=== PATIENT | male | born 1960 | race Caucasian/White ===

== ENCOUNTER 2021-08-19 17:18 | Emergency (ER) | payer OTHER, SELFPAY ==
[2021-08-19 17:19] VITALS: BP 189/99; PULSE 75; RESP 14; TEMP 36.2; O2SAT 98; BMI 41.1
--- NOTE | 2021-08-19 18:14 | EKG12_ITS ---
Test Reason : CP Blood Pressure : / mmHG Vent. Rate : 069 BPM Atrial Rate : 069 BPM P-R Int : 212 ms QRS Dur : 080 ms QT Int : 382 ms P-R-T Axes : 025 077 037 degrees QTc Int : 409 ms Sinus rhythm with 1st degree A-V block Otherwise normal ECG Confirmed by KIMMIE PRINCE, SHONNA ([id number]), editor index IZZY MIRAMONTES ([id number]) on 08/23/2021 10:53:48 AM Referred By: TL Confirmed By:SHONNA BURKS MD
--- NOTE | 2021-08-19 18:20 | CT_ITS ---
INDICATION: trauma EXAMINATION: CT Chest Abdomen And Pelvis W/ Contrast Injection TECHNIQUE: Images were obtained of the chest, abdomen and pelvis following IV contrast. A radiation dose optimization technique was used for this scan. IV Contrast dosage and agent: IV 100mL Isovue-370 COMPARISON: None. FINDINGS: Lungs: Unremarkable Mediastinum: The cardiomediastinal silhouette is not enlarged. No mediastinal, hilar or axillary adenopathy. Mild aortic arch and coronary artery calcifications. No obvious filling defect seen within the visualized pulmonary arteries. Pleura: Unremarkable Liver: Unremarkable Gallbladder: Unremarkable Spleen: Unremarkable Pancreas: Unremarkable Adrenal Glands: Unremarkable Kidneys: Scattered too small to characterize subcentimeter hypodensities bilaterally. Vasculature: Moderate aortoiliac atherosclerotic disease. GI Tract: Unremarkable Lymphadenopathy: None Peritoneum: No ascites. Bladder: Unremarkable Reproductive organs: There are prostatic calcifications. Bones/Soft tissues: No suspicious osseous or soft tissue lesions CT/CT Chest, Abd, Pel w/Contrast IMPRESSION: No acute abnormalities in the chest, abdomen or pelvis. Electronically Signed: Roger Potter MD at 19:58 EST ,
[2021-08-19 18:28] VITALS: PULSE 92; RESP 19; O2SAT 97; O2SAT 98
[2021-08-19] MEDS: Aspirin 81 MG TAB.CHEW 324 MG PO (18:34)
[2021-08-19 18:50] LABS: Anion Gap 9 (5-15); BUN 20 mg/dL (7-18); BUN/Creat Ratio 22.4 RATIO (10-20); Calcium,Total 8.6 mg/dL (8.5-10.1); Chloride 105 mmol/L (98-107); Creatinine, Serum 0.89 mg/dL (0.70-1.30); EST Glomerular Filtration Rate 91 mL/min (>60); Est Glom Filt Rate - Afr Amer 110 mL/min (>60); Estimated Creatinine Clearance 87.72 ml/min; Glucose 233 mg/dL (74-106); Sodium Level 136 mmol/L (136-145); Troponin-I HS 5 pg/mL (3.0-78.0)
[2021-08-19 18:52] LABS: Absolute Lymphocyte Count 1.82 X10^3/uL (0.83-4.51); Absolute Neutrophil Count 2.6 X10^3/uL (2.0-7.7); Basophil# 0.07 X10^3/uL; Basophil% 1.3 % (0-1); Eosinophil# 0.12 X10^3/uL; Eosinophils% 2.3 % (0-5); Hematocrit 40.3 % (40-54); Hemoglobin 13.4 g/dL (13.0-16.5); Lymphocyte # 1.82 X10^3/ul (0.83-4.51); Mean Corp Hgb Conc 33.3 g/dL (32-36); Mean Corpuscular Hgb 30.7 pg (27.0-32.0); Mean Corpuscular Volume 92.4 fL (80-94); Mean Platelet Vol. 9.7 fl (6.2-12.0); Monocyte# 0.52 X10^3/uL; NRBC Flagged by Analyzer 0 % (0-5); Neutrophil # 2.64 X10^3/uL (2.7-7.7); Neutrophil % 50.8 % (47-70); Platelet Count 223 K/mm3 (150-450); RBC Distribution Width CV 12.9 % (11.6-14.6); RBC Distribution Width SD 43.8 fl (35.1-43.9); Red Blood Count 4.36 M/mm3 (4.6-6.2); White Blood Count 5.2 K/mm3 (4.4-11.0)
[2021-08-19] MEDS: Morphine 4 MG/ML Syringe IV (19:17)
[2021-08-19] MEDS: Ondansetron 4 MG/2 ML Vial IV (19:17)
[2021-08-19 19:18] VITALS: BP 143/74; PULSE 68; RESP 17; O2SAT 98
[2021-08-19 20:47] LABS: Troponin-I HS 8 pg/mL (3.0-78.0)
--- NOTE | 2021-08-19 20:53 | ED.VIS.CHEST ---
HPI History of Present Illness Chief Complaint: Chest Pain Narrative Narrative: 61-year-old male presenting with right-sided rib pain in the right axilla and the central portion of the right side of the chest and down into his abdomen. He states he was jacking up his house and he had been doing this slowly over time. He went up today to check it up a little bit more and a 2 x 4 came loose and hit him in the abdomen and across his chest. He states that it knocked him for a loop, but he did not get knocked out. He states he vomited once. He is no longer nauseous. He is complaining of pain in his chest and abdomen. Patient complains of abrasions to the abdomen and the chest wall. Patient denies any blood in his urine. No diarrhea or blood in stool. He states he did not hit his head or lose consciousness. PFSH PFSH Home Medications gabapentin 08/19/21 [History Last Taken Unknown] hydrocodone-acetaminophen 1 tab PO Q6H PRN 3 Days #10 tab 08/19/21 [Rx Last Taken Unknown] insulin aspart U-100 [Novolog Flexpen U-100 Insulin] SUBCUT 08/19/21 [History Last Taken Unknown] insulin detemir U-100 [Levemir FlexTouch U-100 Insuln] unit SUBCUT 08/19/21 [History Last Taken Unknown] lidocaine [Lidoderm] 1 patch TOPICAL DAILY PRN #1 ea 08/19/21 [Rx Last Taken Unknown] lisinopril 08/19/21 [History Last Taken Unknown] sitagliptin [Januvia] mg 08/19/21 [History Last Taken Unknown] Allergy/AdvReac Type Severity Reaction Status Date / Time No Known Allergies Allergy Verified 08/19/21 17:21 Social History Smoking Status: Former smoker ROS ROS ED Constitutional Constitutional ED: Denies chills or fever(s) Eyes Eyes: Denies blurry vision or change in vision ENT ENT ED: Denies rhinorrhea or sore throat Cardiovascular Cardiovascular: Reports as per HPI Respiratory/Chest Respiratory/Chest: Denies cough or dyspnea Gastrointestinal Gastrointestinal: Reports abdominal pain, nausea and vomiting; Denies constipation, diarrhea or melena Genitourinary Genitourinary ED: Denies dysuria or hematuria Musculoskeletal Musculoskeletal: Denies back pain, myalgias or neck pain Integumentary Reports Abrasions; Denies rash Neurologic Neurologic: Denies headache(s) or paresthesias EXAM Physical Exam Const Vital Signs: 08/19/21 17:19 08/19/21 17:42 08/19/21 18:28 Temperature 97.1 F L Temperature Source Temporal Pulse Rate 75 92 Respiratory Rate 14 19 H Respiratory Effort Normal Blood Pressure 189/99 H Blood Pressure Mean 129 Pulse Ox 98 97 Oxygen Delivery Method Room Air Room Air 08/19/21 19:18 Temperature Temperature Source Pulse Rate 68 Respiratory Rate 17 Respiratory Effort Blood Pressure 143/74 H Blood Pressure Mean 97 Pulse Ox 98 Oxygen Delivery Method Room Air Positive well nourished General Appearance ED: NAD; Negative for pallor HEENT Reports moist mucous membranes normocephalic and atraumatic Eyes PERRL and EOMs intact bilaterally Chest Wall Chest Narrative: Tenderness to palpation over the right side of the upper chest and sternum. Equal symmetric breath sounds and chest wall rise. Resp normal respiratory effort Effort and Inspection: respiratory distress Cardio regular rate and regular rhythm GI GI Narrative: Tenderness over the epigastric region and mid abdomen. There are superficial abrasions vertically over the mid abdomen. Abdomen is nonperitoneal. Extremity normal to inspection Neuro oriented x3 Sensorium / Orientation: awake and alert Psych mental status grossly normal Skin General Skin Exam: Negative for jaundice or pallor Heart Score History: Slightly/Non-Suspicious ECG: Normal Age: >45 - <65 years Risk Factors: 1 or 2 Risk Factors Troponin: </= Normal Limit Score: 2 MDM MDM MDM Narrative Medical decision making narrative: Patient presenting with traumatic abdominal and rib pain. Patient given morphine and Zofran on arrival. EKG is obtained and shows a normal sinus rhythm with ventricular rate of 69 bpm without sign of ischemic change on my interpretation. First-degree AV block is noted. CBC and BMP are within normal limits. High-sensitivity troponin is 5 initially in the 2-hour troponin is 8. I do believe this rules out ACS. Given that the patient has pain secondary to trauma I have low suspicion for PE. CT of the chest abdomen pelvis is obtained and is negative for acute findings. Patient requesting more pain is given oxycodone in the ER. He will be given a Lidoderm patch as well. He is given Lidoderm patches and [place] for home. He is given return precautions and counseled that likely he will take several days for his pain to improve. He was counseled not to wrap his ribs. Impression: 1. Chest pain noncardiac 2. Blunt abdominal trauma 3. Nausea/vomiting resolved Lab Data Attestation: I reviewed the patient's lab results. Labs: Laboratory Results - last 24 hr 08/19/21 08/19/21 08/19/21 17:50 17:50 20:08 WBC 5.2 RBC 4.36 L Hgb 13.4 Hct 40.3 MCV 92.4 MCH 30.7 MCHC 33.3 RDW Std Deviation 43.8 RDW Coeff of Geovanna 12.9 Plt Count 223 MPV 9.7 Immature Gran % (Auto) 0.600 Neut % (Auto) 50.8 Lymph % (Auto) 35.0 [place] % (Auto) 10.0 Eos % (Auto) 2.3 Baso % (Auto) 1.3 H Absolute Neuts (auto) 2.6 Absolute Lymphs (auto) 1.82 Nucleated RBC % 0 Sodium 136 Potassium 4.0 Chloride 105 Carbon Dioxide 22.0 Anion Gap 9 BUN 20 H Creatinine 0.89 Estim Creat Clear Calc 87.72 Est GFR (MDRD) Af Amer 110 Est GFR (MDRD) Non-Af 91 BUN/Creatinine Ratio 22.4 H Glucose 233 H Calcium 8.6 Troponin I High Sens 5 8 Radiography Diagnostic Testing: Clinical Impression(s) from Imaging Studies Chest/Abdomen/Pelvis CT 08/19/21 18:20 IMPRESSION: No acute abnormalities in the chest, abdomen or pelvis. Electronically Signed: Roger Potter MD at 19:58 EST , Discharge Plan Triage Chief Complaint: Chest Pain ED Provider: Nathan Jeffries Dx/Rx/DC Orders Instructions: ED Abd Injury Blunt Benign, ED Contusion, Rib Prescriptions: New hydrocodone-acetaminophen 5-325 mg tablet 1 tab PO Q6H PRN (Reason: pain) 3 Days Qty: 10 RF: 0 lidocaine [Lidoderm] 5 % adhesive patch,medicated 1 patch topical DAILY PRN (Reason: pain) Qty: 1 RF: 0 No Action gabapentin 400 mg capsule RF: 0 insulin aspart U-100 [Novolog Flexpen U-100 Insulin] 100 unit/mL (3 mL) insulin pen SUBCUT RF: 0 Levemir FlexTouch U-100 Insuln 100 unit/mL (3 mL) insulin pen SUBCUT RF: 0 Januvia 100 mg tablet RF: 0 lisinopril 20 mg tablet RF: 0 Primary Care Provider: Andry Almaguer NP Referrals: Andry Almaguer NP, [employer] [Primary Care Provider] - Disposition Disposition: Home, Self Care
[2021-08-19 21:03] VITALS: BP 132/80; PULSE 74; RESP 17; O2SAT 98
== END 2021-08-19 21:04 | disposition home or self-care (01) ==
PROVIDERS: Emergency Provider Student in an Organized Health Care Education/Training Program; PCP Nurse Practitioner Family; Visit Provider Student in an Organized Health Care Education/Training Program
DX: S39.91XA Unspecified injury of abdomen, initial encounter (principal); R07.89 Other chest pain; Z87.891 Personal history of nicotine dependence; X58.XXXA Exposure to other specified factors, initial encounter
CPT/HCPCS: 71260; 74177; 80048; 84484; 85025; 93005; 96374; 96375; 99283; Q9967; A4216; J2405

== ENCOUNTER 2023-04-28 23:07 | Emergency (ER) | payer MEDICARE, SELFPAY ==
[2023-04-28 23:12] VITALS: BP 153/92; PULSE 67; RESP 18; TEMP 36.6; O2SAT 99; BMI 41.2
[2023-04-28 23:14] VITALS: BP 153/92; PULSE 65; RESP 18; TEMP 36.6; O2SAT 99
--- NOTE | 2023-04-28 23:35 | EX.ED.UPPERE ---
HPI History of Present Illness HPI Narrative: Red and swollen right hand that began 1 to 2 hours ago. Denies any injury or trauma. Initially started as itching earlier today. It is a little uncomfortable. No fever. No history of cellulitis. No recent insect bite or allergic reactions to anything. No fall or injury. Chief Complaint: Edema Informant: patient Occured/Mechanism Mechanism/Context: No injury and No blunt trauma Onset/Context/Timing Onset: Today and Hours Context: Gradual Onset Timing: Continuous Quality of Pain: Dull Current Severity: Mild Maximum Severity: Mild Associated Symptoms Associated Symptoms: Negative for Parasthesia, Weakness or Loss of Funtion Narrative Narrative: 63-year-old diabetic male with atraumatic redness and swelling of his hand moving in his forearm that started several hours ago. Initially was itching. No history of any trauma. No history of any insect bite or sting or any other contact with any allergic reaction. Prior similar symptoms: No Recent Illness/Hospitalization: [facility] Medical History Diabetic acetonemia Home Medications gabapentin 400 mg capsule 400 mg PO Q6H 08/19/21 [History Last Taken Unknown] lisinopril 20 mg tablet 20 mg PO DAILY 08/19/21 [History Last Taken Unknown] aspirin 325 mg tablet 325 mg PO DAILY 04/28/23 [History Last Taken Unknown] atorvastatin 20 mg tablet 20 mg PO DAILY 04/28/23 [History Last Taken Unknown] cephalexin 500 mg capsule 500 mg PO Q6 #40 CAPSULES 04/28/23 [Rx Last Taken Unknown] dapagliflozin propanediol 10 mg tablet (Farxiga) 10 mg PO DAILY 04/28/23 [History Last Taken Unknown] insulin glargine 100 unit/mL (3 mL) subcutaneous pen (Lantus Solostar U-100 Insulin) 60 unit subcut QHS 04/28/23 [History Last Taken Unknown] insulin lispro 100 unit/mL subcutaneous pen (Humalog KwikPen (U-100) Insulin) 12 - 18 unit subcut BID 04/28/23 [History Last Taken Unknown] omega 2-flc-gdn-fish oil 1,200 mg (144 mg-216 mg) capsule (Fish Oil) 1 cap PO DAILY 04/28/23 [History Last Taken Unknown] venlafaxine 75 mg capsule,extended release 24 hr 75 mg PO DAILY 04/28/23 [History Last Taken Unknown] Allergy/AdvReac Type Severity Reaction Status Date / Time No Known Allergies Allergy Verified 04/28/23 23:08 Social History Smoking Status: Former smoker ROS ROS ED ROS Narrative Hand red and swollen. Itching. Review of Systems ROS Unobtainable: Denies due to encephalopathy Constitutional Constitutional ED: Denies chills or fever(s) Eyes Eyes: Denies blurry vision ENT ENT ED: Denies ear pain Cardiovascular Cardiovascular: Denies chest pain Respiratory/Chest Respiratory/Chest: Denies cough or dyspnea Gastrointestinal Gastrointestinal: Denies abdominal pain Genitourinary Genitourinary ED: Denies dysuria or hematuria Musculoskeletal Musculoskeletal: Denies back pain Integumentary Denies abscess Neurologic Neurologic: Denies headache(s) Psychiatric Psychiatric: Denies anxiety or depression Endocrine Endocrinology: Denies cold intolerance Hematologic/Lymphatic Hematologic/Lymphatic: Denies easy bleeding or easy bruising Allergic/Immunologic Allergic/Immunologic ED: Denies mouth swelling or tongue swelling EXAM Physical Exam Narrative Exam Narrative: 63-year-old male vital signs stable afebrile. Does not look septic or toxic. No distress. H EENT exam unremarkable. Lungs clear. Heart regular rhythm. Abdomen soft nontender. Moving all 4 extremities. Calves are nontender without edema. Dorsum of his right hand is swollen. Mildly red. Also extends into the palmar aspect of his distal third of his forearm. Normal radial pulse. Normal flexion extension of the hand. This could either be an allergic reaction or early cellulitis. There is no axillary lymphadenopathy. Joints are unremarkable. Otherwise exam is unremarkable. Const Vital Signs: 04/28/23 23:12 04/28/23 23:14 Temperature 97.8 F 97.8 F Temperature Source Temporal Temporal Pulse Rate 67 65 Respiratory Rate 18 18 Blood Pressure 153/92 H 153/92 H Blood Pressure Mean 112 112 Pulse Ox 99 99 Positive well nourished and well developed; Negative for cachectic, contractures or unkempt General Appearance ED: well developed and NAD; Negative for unkempt, cachectic, contractures, cyanotic or diaphoretic Nutritional Appearance: Negative for cachectic HEENT Reports moist mucous membranes normocephalic; Negative for atraumatic, trauma or tenderness Eyes PERRL and EOMs intact bilaterally General Eye ED: Negative for other Neck full ROM and supple General: Negative for tenderness Lymph Lymphatic: Negative for other Chest Wall inspection of chest normal and palpation of chest normal Chest: Negative for other Resp normal respiratory effort and clear to auscultation bilaterally Effort and Inspection: Negative for pain with movement Auscultation: Negative for rales, rhonchi or wheezes Cardio regular rate, regular rhythm, S1 normal heart sound, S2 normal heart sound and no murmurs Rate: Negative for bradycardia Rhythm: Negative for abnormal rhythm GI non-tender, non-distended and no masses Inspection: Negative for abdominal distention Auscultation: normoactive bowel sounds Palpation: soft; Negative for tender or guarding Back/Spine no CVA tenderness General Back: Negative for CVA tenderness Cervical Spine: Negative for cervical spine tenderness Thoracic Spine / Upper Back: Negative for thoracic spinal tenderness Lumbar Spine / Lower Back: Negative for lumbar spinal tenderness Extremity full ROM; Negative for normal to inspection Extremity Narrative: Right hand red mildly swollen. Dorsum and palmar aspect of the distal third of the right forearm. No axillary lymphadenopathy. Normal range of motion. Normal radial pulse. Full flexion extension. No necrotic skin. No crepitance or subcu air. General Extremety ED: Yes edema General Extremity: edema Neuro oriented x3, CN's II-XII intact bilaterally, moves all extremities and no focal motor deficits Sensorium / Orientation: alert, oriented to person, oriented to place and oriented to time; Negative for orientation impaired, lethargic or stuporous Motor Exam: strength 5/5 throughout Psych mental status grossly normal Appearance: Negative for unkempt Attitude: No agitated Mood & Affect: Negative for depressed, anxious or tearful Skin Skin Narrative: Cellulitis or allergic reaction of the right hand and distal third of the forearm. General Skin Exam: Negative for petechiae Lesions: no lesions Rashes: No no rashes Trauma: Negative for no lacerations or abrasions, abrasion or laceration MDM MDM MDM Narrative Medical decision making narrative: 63-year-old diabetic male with either acute allergic reaction of his right hand and distal forearm or an early cellulitis. Due to him being diabetic and to treat this is his infection. We placed on Keflex 500 4 times daily for 10 days. Started on it tonight here given his first dose. Also iced and elevated for possible allergic reaction. Motrin for pain and swelling. He is already taken Benadryl and will continue to do so for possible allergic reaction. I do not want to put him on prednisone 1 due to his diabetes and elevated blood sugars and 2 cases of infection. History & Record Review Discussion w/independent historian: Patient Additional record(s) reviewed:: Prior inpatient record, Prior outpatient record, Prior ED visit and Prior labs Discharge Plan Triage Chief Complaint: Edema ED Provider: Eran Rain Dx/Rx/DC Orders Clinical Impression: History of diabetes mellitus, Cellulitis of hand, right Instructions: ED Cellulitis Prescriptions: New cephalexin 500 mg capsule 500 mg PO Q6 Qty: 40 0RF No Action gabapentin 400 mg capsule 400 mg PO Q6H lisinopril 20 mg tablet 20 mg PO DAILY atorvastatin 20 mg tablet 20 mg PO DAILY Patient Comments: TAKE 1 TABLET BY MOUTH EVERY DAY FOR 90 DAYS insulin lispro [Humalog KwikPen Insulin] 100 unit/mL insulin pen 12 - 18 unit SUBCUT BID Patient Comments: INJECT BEFORE MEALS 10 UNITS IN AM 15 UNITS AT LUNCH 15 UNITS AT EVENING MEAL insulin glargine [Lantus Solostar U-100 Insulin] 100 unit/mL (3 mL) insulin pen 60 unit SUBCUT QHS Patient Comments: INJECT 60 UNITS SUBCUTANEOUSLY DAILY AT BEDTIME FOR 90 DAYS Farxiga 10 mg tablet 10 mg PO DAILY Patient Comments: TAKE 1 TABLET BY MOUTH EVERY DAY venlafaxine 75 mg capsule,extended release 24hr 75 mg PO DAILY Patient Comments: TAKE 1 CAPSULE BY MOUTH EVERY DAY FOR 90 DAYS aspirin 325 mg tablet 325 mg PO DAILY omega 3-jyl-knt-fish oil [Fish Oil] 1,200 (144-216) mg capsule 1 cap PO DAILY Primary Care Provider: Andry Almaguer NP Referrals: Andry Almaguer [employer]ER, [employer]ACHER[employer] [Primary Care Provider] - 3-5 Days if not improving Activity Restrictions/Additional Instructions: This is either an early infection of your hand called cellulitis. Or an allergic reaction. We will start you on antibiotic called Keflex 1 pill 4 times a day for 10 days. Start taking it first thing tomorrow morning. Ice and elevate your hand to decrease pain and swelling. Benadryl in case it is an allergic reaction. Motrin for pain and swelling. Follow-up with your doctor if not improving. Return to the emergency department if you are feeling a lot worse or it spreads quickly up your arm and you develop a fever. Disposition Disposition: Home, Self Care
[2023-04-28] MEDS: Cephalexin 250 MG Capsule 500 MG PO (23:42)
== END 2023-04-29 00:05 | disposition home or self-care (01) ==
LOC: ED 23:48
PROVIDERS: Emergency Provider Emergency Medicine; PCP Nurse Practitioner Family; Visit Provider Emergency Medicine
DX: L03.113 Cellulitis of right upper limb (principal); E11.9 Type 2 diabetes mellitus without complications; Z79.4 Long term (current) use of insulin; Z87.891 Personal history of nicotine dependence; Z79.899 Other long term (current) drug therapy
CPT/HCPCS: 99282

== ENCOUNTER → 2023-08-24 | Outpatient (CLI) | payer MEDICARE, SELFPAY ==
[2023-08-24 14:30] LABS: Hemoglobin A1c 6.9 % (3.8-5.6)
[2023-08-24 14:36] LABS: Microalbumin,Random Urine < 5.0 mg/L (NO RANGE EST.)
[2023-08-24 14:53] LABS: AST(SGOT) 15 U/L (15-37); Alanine Aminotransfer ALT/SGPT 24 U/L (16-61); Albumin, Serum 3.7 g/dL (3.2-5.0); Alkaline Phosphatase 68 U/L (45-117); Anion Gap 3 (5-15); BUN 19 mg/dL (7-18); BUN/Creat Ratio 21.4 RATIO (10-20); Calcium,Total 9.3 mg/dL (8.5-10.1); Chloride 108 mmol/L (98-107); Cholesterol 179 mg/dL (200); Creatinine, Serum 0.89 mg/dL (0.70-1.30); EST Glomerular Filtration Rate 91 mL/min (>60); Est Glom Filt Rate - Afr Amer 111 mL/min (>60); Globulin 3.6 g/dL (2.2-4.2); Glucose 93 mg/dL (74-106); High Density Lipoprotein 70 mg/dL; PSA,Total - Annual Screen 0.54 ng/mL (0.00-4.00); Potassium 4.4 mmol/L (3.5-5.1); Protein, Total 7.3 g/dL (6.4-8.2); Sodium Level 136 mmol/L (136-145); Triglycerides 103 mg/dL; Very Low Density Lipoprotein 21 mg/dL (5-40)
== END | disposition home or self-care (01) ==
PROVIDERS: PCP Nurse Practitioner Family; Referring Provider Nurse Practitioner Family; Visit Provider Nurse Practitioner Family
DX: I10 Essential (primary) hypertension (principal); E11.9 Type 2 diabetes mellitus without complications; E78.5 Hyperlipidemia, unspecified; Z12.5 Encounter for screening for malignant neoplasm of prostate
CPT/HCPCS: 36415; 80053; 80061; 82043; 82570; 83036; 84153; G0103

== ENCOUNTER → 2023-10-09 | Outpatient (CLI) | payer MEDICARE, SELFPAY ==
--- NOTE | 2023-10-09 06:45 | CT_ITS ---
CT RIGHT LOWER EXTREMITY WITH 3-D IMAGING CLINICAL INDICATION: PAIN IN RIGHT KNEE TECHNIQUE: Axial CT images of the right lower extremity (including right hip, right knee, and right ankle) was performed without IV contrast material. Coronal and sagittal reformats were provided. RADIATION DOSAGE (If Supplied By Facility): CTDIvol = ( 20.10 ) mGy, DLP = ( 1145.38 ) mGycm COMPARISON: Right knee radiographs dated 11/25/2016. FINDINGS: Bones: There is degenerative arthrosis of the right hip joint with joint space narrowing, marginal osteophyte formation, and small subchondral cyst formation. There is mild pubic symphysis arthrosis. There is severe degenerative arthrosis of the medial femorotibial compartment of the right knee with joint space narrowing, marginal osteophyte formation, and subchondral sclerosis/cyst formation. There is mild degenerative arthrosis of the patellofemoral and lateral femorotibial compartments of the right knee, with marginal osteophyte formation. There is a tiny plantar calcaneal spur. Osseous structures are intact without evidence of fracture or dislocation. No lytic or blastic osseous masses. Soft Tissues: There is a small right knee joint effusion There are atherosclerotic calcifications. The deep soft tissue structures are unremarkable. The superficial soft tissues are unremarkable without evidence of edema, hematoma, or foreign body. CT/Extremity Lower without Contra IMPRESSION: Tricompartment degenerative arthrosis of the right knee, most severe in the medial femorotibial compartment. Small right knee joint effusion. Electronically Signed: Miguel Angel Holland MD at 14:05 EDT ,
== END | disposition home or self-care (01) ==
PROVIDERS: PCP Nurse Practitioner Family; Referring Provider Orthopaedic Surgery; Visit Provider Orthopaedic Surgery
DX: M17.11 Unilateral primary osteoarthritis, right knee (principal); M25.561 Pain in right knee
CPT/HCPCS: 73700

== ENCOUNTER 2023-10-30 06:03 | Day surgery (SDC) | payer MEDICARE, SELFPAY ==
[2023-10-09 08:26] LABS: Hematocrit 44.9 % (40-54); Hemoglobin 14.8 g/dL (13.0-16.5); Mean Corpuscular Hgb 30.7 pg (27.0-32.0); Mean Corpuscular Volume 93.2 fL (80-94); Mean Platelet Vol. 9.8 fl (6.2-12.0); Platelet Count 218 K/mm3 (150-450); RBC Distribution Width CV 12.9 % (11.6-14.6); RBC Distribution Width SD 44.3 fl (35.1-43.9); Red Blood Count 4.82 M/mm3 (4.6-6.2); White Blood Count 4.6 K/mm3 (4.4-11.0)
[2023-10-09 09:09] LABS: Prothrombin Time (Protime)PT. 13.4 SECONDS (11.7-14.9)
[2023-10-09 09:10] LABS: Partial Thromboplast Time 30.5 Seconds (24.1-36.2)
[2023-10-09 09:14] LABS: AST(SGOT) 15 U/L (15-37); Alanine Aminotransfer ALT/SGPT 21 U/L (16-61); Albumin, Serum 3.4 g/dL (3.2-5.0); Alkaline Phosphatase 63 U/L (45-117); Bilirubin, Direct 0.15 mg/dL (0.00-0.30); Globulin 3.2 g/dL (2.2-4.2); Protein, Total 6.6 g/dL (6.4-8.2)
[2023-10-09 09:38] LABS: Magnesium 2.4 mg/dL (1.6-2.6)
[2023-10-23 11:25] LABS: Absolute Lymphocyte Count 1.73 X10^3/uL (0.83-4.51); Absolute Neutrophil Count 2.1 X10^3/uL (2.0-7.7); Basophil# 0.06 X10^3/uL; Basophil% 1.4 % (0-1); Eosinophil# 0.09 X10^3/uL; Hematocrit 47.1 % (40-54); Hemoglobin 15.7 g/dL (13.0-16.5); Lymphocyte # 1.73 X10^3/ul (0.83-4.51); Lymphocyte % 39.2 % (19-41); Mean Corp Hgb Conc 33.3 g/dL (32-36); Mean Corpuscular Hgb 30.7 pg (27.0-32.0); Mean Corpuscular Volume 92.2 fL (80-94); Mean Platelet Vol. 9.6 fl (6.2-12.0); Monocyte# 0.47 X10^3/uL; Monocyte% 10.7 % (0-10); NRBC Flagged by Analyzer 0 % (0-5); Neutrophil # 2.05 X10^3/uL (2.7-7.7); Neutrophil % 46.5 % (47-70); Platelet Count 215 K/mm3 (150-450); RBC Distribution Width CV 12.9 % (11.6-14.6); RBC Distribution Width SD 44.1 fl (35.1-43.9); Red Blood Count 5.11 M/mm3 (4.6-6.2); White Blood Count 4.4 K/mm3 (4.4-11.0)
[2023-10-30] VITALS (8 sets, daily range): BP systolic 109–140; BP diastolic 49–76; PULSE 62–86; RESP 16–20; TEMP 36.1–36.6; O2SAT 96–100; BMI 41.4
--- NOTE | 2023-10-30 | KNEE_PTH ---
PATIENT: SIMON ESTEBAN LOC: [facility] [place] U#:[id number] AGE/SX: 63/M ROOM: RE10/30/[address]: Dr. Ovidio Brunner MD : 1960 BED: DIS: 10/30/2023 SPEC #: [id number] RECD: 10/30/23 12:56 STATUS: MONE REInes #: [id number] JACQUI: 10/30/23 00:[address]: Ovidio Brunner DEPT: SURGICAL PATHOLOGY RECD BY: Arden Goetz ENTERED: 10/30/23 12:57 SP TYPE: TOTAL KNEE OTHR DR: MD Andry Pena, EXERCISE PHYSIOLOGY PROFESSOR-C Tissues: Knee, NOS Procedures: Decalcification bone/plaque Surgery Specimen Level IV HEADER OPERATION: ERAS, total knee replacement robotic arm assist PRE-OP DIAGNOSIS: Osteoarthritis right knee TISSUE SUBMITTED: Bone and tissue right knee MICROSCOPIC DIAGNOSIS Bone and soft tissue, right knee, total knee replacement/resection: Pieces of bone with degenerative osteoarthritic changes. Fibroadipose tissue, fibroconnective tissue and reactive synovial tissue. : 11/02/23 MICROSCOPIC DESCRIPTION Slides are reviewed. GROSS DESCRIPTION Received is one container designated bone and soft tissue right knee. The specimen consists of multiple fragments of sheriff-yellow bone measuring in aggregate 17.0 x 13.0 x 2.0 cm. Also in the specimen container are multiple fragments of yellow-white soft tissue measuring in aggregate 8.0 x 6.0 x 1.5 cm. A number of bony fragments contain articular surfaces consistent with tibial plateau and femoral condyle and displaying prominent osteophyte formation, eburnation and bone erosion. Sequins Winder sections are submitted in two cassettes as follows: 1 - soft tissue, 2 - bone after decalcification. / 10/30/23 TC:5 CPT: 57659, 01271
[2023-10-30] MEDS: Lactated Ringers 1,000 ML 999 ML IV ×2 (06:38→10:45)
[2023-10-30] MEDS: Magnesium 1 GM over 15 mins IV (06:38)
[2023-10-30] MEDS: Gabapentin 600 MG Tablet PO (06:39)
[2023-10-30] MEDS: Acetaminophen 500 MG Tablet 1000 MG PO (06:39)
[2023-10-30 07:03] LABS: Bedside Glucose 151 mg/dL (74-106)
[2023-10-30] MEDS: Lactated Ringers 1,000 ML 75 ML IV (07:54)
[2023-10-30] MEDS: Cefazolin 3 GM in 0.9% Normal Saline (100mL Bag) 100 ML IV (08:42)
[2023-10-30] MEDS: TXA 1000mg in NS100 100ml (IVPB at Incision) 660 MG IV (08:53)
[2023-10-30] MEDS: JPS (Morphine 10mg/ml) OPERA.SITE (09:42)
[2023-10-30] MEDS: TXA 1000mg in NS100 100ml (IVPB at Closure) 660 MG IV (09:48)
--- NOTE | 2023-10-30 10:00 | OP.PCM_ITS ---
Report of Operation Date of Procedure: 10/30/23 Pre-Operative Diagnosis: Right knee primary osteoarthritis Post-Operative Diagnosis: Right knee primary osteoarthritis Surgery/Procedure Performed:: Right minimally invasive robotic total knee replacement Description of Surgical Findings:: Stable knee with good patella tracking Surgeon: Ovidio Brunner staff nurse icu resource team: Phu Ngo Type of Anesthesia: General Anesthesiologist: Dominik Medrano Special Medications: 2 g Ancef, 1 g TXA at incision, 1 g TXA closure, 10 mg Decadron, joint cocktail (5 mg Duramorph, 30 mL of 0.5% Ropivicaine, 1000 units of epinephrine, 30 mg of Toradol) Specimen's removed: Bony cuts Estimated Blood Loss (mL): 200 Fluids Replaced: 1700 ml Description of Procedure: Implants used: 1. [employer] size 5 triathlon cruciate retaining distal femoral press-fit component 2. [employer] size 6 press-fit tritanium tibial baseplate 3. Elva X3 10 mm CS polyethylene 4. Elva X3 38 mm asymmetric patella Brief history operative indications: 63-year-old M with history of right knee osteoarthritis with radiographic findings with loss of joint space, osteophyte formation and subchondral sclerosis. Failed conservative measures as mentioned in the H&P. Discussion of total knee arthroplasty as well as risk and benefits were discussed the patient including but not limited to blood loss, DVTs, PEs, neurovascular damage, general risk of anesthesia including loss of life, and stiffness or instability were discussed with patient. Patient demonstrated understanding and was able to sign informed consent. Procedure: On the date of procedure patient's right lower extremity was marked in the preoperative area. The patient was then taken back to the operating room where the patient was placed on the table in the supine position. All bony prominences were identified a well-padded. Anesthesia assumed control of the C-spine and airway and remained controlled throughout the remainder of the procedure. A tourniquet was placed on the right upper thigh and the leg was prepped in a sterile fashion. The surgeon then scrubbed at this time .Upon reentering the room right lower extremity was draped in a standard orthopedic fashion. A t imeout was then called and everyone agreed upon the side, the site, the procedure to be performed, patient's identity and antibiotics given. Esmarch bandage was used to exsanguinate the extremity and the tourniquet was placed up to 250 mmHg with the knee in flexion. A midline skin incision was made and sharp dissection was taken down through skin subcutaneous tissue and fat. The standard medial parapatellar incision was made and the patella was subluxed laterally. An Appropriate deep MCL release was done and the fat pad was resected. Our attention was then directed to the patella. The patella was everted and a flat resection was made. The knee was then flexed up in 2 femoral pins were placed inside the incision and 2 tibial pins were placed outside the incision in the medial tibia bicort ically. Once this was completed the 2 checkpoints in the femur and tibia were placed. Knee was then flexed up and the bony landmarks were registered. Once this was completed knee was taken through range of motion and manually stressed allowing us to a plan for an appropriate tibial cut. The robotic arm was brought into the field sterilely and checkpoint and saw were registered. Based on the patient's deformity the tibial cut was made in 1 degree of varus. At this time the tensioner was then placed in the joint and ligament tension was checked at 90 degrees and full extension. Based on the patient's ligamentous tension appropriate adjustments were made to the operative plan and ligament releases were done. Once we were happy with our operative plan with balanced flexion and extension gaps our attention was directed to the femur. The robot was brought into the field sterilely and registered. Posterior condylar cuts, anterior chamfer cuts and anterior cuts were appropriately made for a size 5 femur. When these were completed the saws were switched out in the distal femoral and posterior chamfer cuts were made. Protecting the soft tissue throughout this time. A size 6 tibial base plate was selected. the knee was flexed to 90 degrees and the soft tissues and posterior osteophytes were removed from the joint. 40 cc of the periarticular injection was injected into the posterior medial corner of the joint. The appropriate trials were then placed on the femur and tibia. A trial polyethylene was trialed to ensure proper balancing and stability of the knee. The appropriate tibial internal rotation was then marked with a bovie. Our attention was then directed to the patella. The lug holes were drilled and the patella trial was placed. Patellar tracking was checked and deemed appropriate. Once we were happy lug holes were drilled for the femur and trial components were removed. the tibia was subluxed and pinned into place and the keel was punched and drilled appropriately. Final components were verified and opened, and cement was mixed in a vacuum. [employer] Simplex cement was used. The wound was copiously irrigated with normal saline. When the cement was ready the components were impacted into place starting with the tibia, femur and finally cementing the patella. The trial poly component was placed and the knee was placed in full extension. All excess cement was removed in the process. Once the cement had cured the tracking, alignment and balance were verified and a size 10 mm CS polyethylene component was placed. Once the final components were placed a 3-minute dilute Betadine lavage was performed followed by an Irrisept lavage was performed and the wound was copiously irrigated with normal saline solution and the periarticular injection was given. The wound was closed in a layer jiménez fashion using #1 vicryl interrupted sutures for the arthrotomy, 2-0 interrupted Vicryl suture for the subcuticular layer and adrián for final skin closure. A sterile compressive dressing was then placed. The patient was then awakened from anesthesia, transferred to the [place] and transferred to the PACU for recovery. Post op plan DVT ppx: ASA 81mg BID, thigh high compression stockings Follow up: in office in 2 weeks for wound check PT: to start POD #0 at hospital, outpatient PT should be arranged. Doxycycline postoperatively for 2 weeks due to patient's increased risk for infection in relation to hemoglobin A1c greater than 7 but less than 7.5 and BMI greater than 40, but less than 45 My physician agency sales management assistant was a vital part of this case. He was important in appropriate retraction during the case, and protection of soft tissues during bony cuts. His intimate knowledge of the case and my steps aided in safe and expedient completion of the procedure as well as appropriate position of the leg during the case. He was also vital in assisting with closure under my direct supervision. Due to the complexity of this case robotic arm was used to assist in the surgery to improve accuracy and clinical outcomes. Complications No intraoperative complications Admit VTE Documentation VTE Present on Admission: No VTE Mechan Device Prophylaxis: SCD's and Thigh High DUSTIN Hose VTE Pharm Prophylaxis ordered?: Yes
--- NOTE | 2023-10-30 10:56 | RAD_ITS ---
EXAM: XR RIGHT KNEE, 1 OR 2 VIEWS CLINICAL INDICATION: TKA -- in PACU TECHNIQUE: Frontal and/or lateral views of the right knee. COMPARISON: Preoperative radiographs of 11/25/2016 FINDINGS: BONES/JOINTS: Interval placement of a total right knee arthroplasty; metallic components are appropriately positioned. No periprosthesis fracture is identified. There is no dislocation. No sclerotic or destructive changes observed. SOFT TISSUES: Soft tissue swelling and soft tissue emphysema are present secondary to recent surgery, with overlying skin adrián. VASCULATURE: Atherosclerotic vascular calcification is present. RAD/Knee 1 or 2 Views IMPRESSION: Interval placement of total right knee arthroplasty. Electronically Signed: Alphonso Gongora MD at 5:12 EDT ,
[2023-10-30 11:13] LABS: Bedside Glucose 201 mg/dL (74-106)
[2023-10-30] MEDS: oxyCODONE 5 MG Tablet PO (11:50)
[2023-10-30] MEDS: Ketorolac 30 MG/ML Syringe IV (11:51)
[2023-10-30] MEDS: Cefazolin 1 GM/50 ML BAG IV (12:05)
== END 2023-10-30 13:06 | disposition home or self-care (01) ==
LOC: SDC 06:03 → AC 06:04
PROVIDERS: Anesthesiology; Orthopaedic Surgery; PCP Nurse Practitioner Family; Referring Provider Specialist; Visit Provider Specialist
PROC: 0SRC0JZ Replacement of Right Knee Joint with Synthetic Substitute, Open Approach (ICD-10-PCS; CPT 27447; principal; 2023-10-30 08:15)
DX: M17.11 Unilateral primary osteoarthritis, right knee (principal); Z68.41 Body mass index [BMI] 40.0-44.9, adult; E11.9 Type 2 diabetes mellitus without complications; I10 Essential (primary) hypertension; E66.9 Obesity, unspecified; Z87.891 Personal history of nicotine dependence; Z96.652 Presence of left artificial knee joint; Z79.82 Long term (current) use of aspirin; M79.89 Other specified soft tissue disorders
CPT/HCPCS: 27447; S2900; 01402; 64447; 36415; 73560; 80076; 82962; 83735; 85025; 85027; 85610; 85730; 87081; 88305; 88311; 97162; C1776; J7120; J2405; J3475

== ENCOUNTER → 2024-03-08 | Outpatient (CLI) | payer MEDICARE, SELFPAY ==
[2024-03-08 12:25] LABS: Hematocrit 44.4 % (40-54); Hemoglobin 15.1 g/dL (13.0-16.5); Mean Corpuscular Volume 91.2 fL (80-94); Mean Platelet Vol. 9.6 fl (6.2-12.0); Platelet Count 240 K/mm3 (150-450); RBC Distribution Width CV 13.4 % (11.6-14.6); RBC Distribution Width SD 44.8 fl (35.1-43.9); Red Blood Count 4.87 M/mm3 (4.6-6.2); White Blood Count 6.7 K/mm3 (4.4-11.0)
[2024-03-08 12:54] LABS: ALB/GLOB Ratio 1.1 RATIO (0.9-2.4); AST(SGOT) 18 U/L (15-37); Alanine Aminotransfer ALT/SGPT 25 U/L (16-61); Albumin, Serum 3.5 g/dL (3.2-5.0); Alkaline Phosphatase 77 U/L (45-117); Anion Gap 5 (5-15); BUN 22 mg/dL (7-18); BUN/Creat Ratio 23.4 RATIO (10-20); Calcium,Total 9.3 mg/dL (8.5-10.1); Chloride 106 mmol/L (98-107); Cholesterol 153 mg/dL (200); Creatinine, Serum 0.94 mg/dL (0.70-1.30); EST Glomerular Filtration Rate 85 mL/min (>60); Est Glom Filt Rate - Afr Amer 103 mL/min (>60); Globulin 3.3 g/dL (2.2-4.2); Glucose 161 mg/dL (74-106); High Density Lipoprotein 72 mg/dL; PSA,Total - Annual Screen 0.58 ng/mL (0.00-4.00); Potassium 4.7 mmol/L (3.5-5.1); Protein, Total 6.8 g/dL (6.4-8.2); Sodium Level 137 mmol/L (136-145); Triglycerides 96 mg/dL; Very Low Density Lipoprotein 19 mg/dL (5-40)
== END | disposition home or self-care (01) ==
LOC: LAB 11:37
PROVIDERS: PCP Nurse Practitioner Family; Referring Provider Nurse Practitioner Family; Visit Provider Nurse Practitioner Family
DX: Z01.818 Encounter for other preprocedural examination (principal); E11.9 Type 2 diabetes mellitus without complications; I10 Essential (primary) hypertension; E78.5 Hyperlipidemia, unspecified; Z12.5 Encounter for screening for malignant neoplasm of prostate
CPT/HCPCS: 36415; 80053; 80061; 84153; 85027; G0103

== ENCOUNTER → 2024-09-30 | Outpatient (CLI) | payer MEDICARE, SELFPAY ==
[2024-09-30 11:19] LABS: Hematocrit 45.2 % (40-54); Hemoglobin 14.8 g/dL (13.0-16.5); Mean Corp Hgb Conc 32.7 g/dL (32-36); Mean Corpuscular Hgb 30.3 pg (27.0-32.0); Mean Corpuscular Volume 92.4 fL (80-94); Mean Platelet Vol. 9.1 fl (6.2-12.0); Platelet Count 231 K/mm3 (150-450); RBC Distribution Width CV 12.8 % (11.6-14.6); RBC Distribution Width SD 43.6 fl (35.1-43.9); Red Blood Count 4.89 M/mm3 (4.6-6.2); White Blood Count 6.4 K/mm3 (4.4-11.0)
[2024-09-30 11:52] LABS: ALB/GLOB Ratio 1.4 RATIO (0.9-2.4); AST(SGOT) 77 U/L (<=37); Alanine Aminotransfer ALT/SGPT 37 U/L (<=46); Albumin, Serum 3.8 g/dL (3.4-4.8); Alkaline Phosphatase 79 U/L (40-129); Anion Gap 10 (5-15); BUN 21 mg/dL (4-19); BUN/Creat Ratio 21.7 RATIO (10-20); Chloride 104 mmol/L (98-108); Creatinine, Serum 0.98 mg/dL (0.70-1.20); EST Glomerular Filtration Rate 85 (>60); Globulin 2.8 g/dL (2.2-4.2); Glucose 109 mg/dL (70-99); Potassium 4.9 mmol/L (3.3-5.1); Protein, Total 6.6 g/dL (5.9-8.4); Sodium Level 138 mmol/L (133-145); Total Bilirubin 0.45 mg/dL (0.00-1.30)
[2024-09-30 12:21] LABS: Microalbumin,Random Urine < 12.0 mg/L (NO RANGE EST.); Microalbumin:Creatinine Ratio UNABLE TO CALCULATE mg/g CRE
[2024-09-30 12:24] LABS: Hemoglobin A1c 7.3 % (<=5.6)
[2024-09-30 12:51] LABS: Cholesterol 153 mg/dL (<=200); High Density Lipoprotein 60 mg/dL; Low Density Lipoprotein Calc. 81 mg/dL; Triglycerides 58 mg/dL; Very Low Density Lipoprotein 12 mg/dL (5-40); cholesterol:hdl ratio screen 2.55
== END | disposition home or self-care (01) ==
LOC: LAB 10:41
PROVIDERS: PCP Nurse Practitioner Family; Referring Provider Nurse Practitioner Family; Visit Provider Nurse Practitioner Family
DX: Z12.5 Encounter for screening for malignant neoplasm of prostate (principal); E11.9 Type 2 diabetes mellitus without complications; I10 Essential (primary) hypertension; J01.90 Acute sinusitis, unspecified; E78.5 Hyperlipidemia, unspecified
CPT/HCPCS: 36415; 80053; 80061; 82043; 82570; 83036; 85027

== ENCOUNTER → 2025-04-02 | Outpatient (CLI) | payer MEDICARE, SELFPAY ==
[2025-04-02 11:23] LABS: Creatinine, Urine (random) 118.00 mg/dL (39.00-259.00); Microalbumin,Random Urine < 12.0 mg/L (<20 mg/L)
[2025-04-02 12:03] LABS: AST(SGOT) 21 U/L (<=37); Alanine Aminotransfer ALT/SGPT 20 U/L (<=46); Albumin, Serum 4.2 g/dL (3.4-4.8); Alkaline Phosphatase 84 U/L (40-129); Anion Gap 10 (5-15); BUN 21 mg/dL (4-19); BUN/Creat Ratio 20.7 RATIO (10-20); Calcium,Total 9.7 mg/dL (7.6-11.0); Carbon Dioxide 24.3 mmol/L (21.0-32.0); Chloride 105 mmol/L (98-108); Cholesterol 191 mg/dL (<=200); Globulin 2.7 g/dL (2.2-4.2); Glucose 144 mg/dL (70-99); Low Density Lipoprotein Calc. 111 mg/dL; PSA,Total - Annual Screen 1.05 ng/mL (0.02-4.00); Potassium 5.3 mmol/L (3.3-5.1); Triglycerides 81 mg/dL; Very Low Density Lipoprotein 16 mg/dL (5-40); cholesterol:hdl ratio screen 3.01
== END | disposition home or self-care (01) ==
LOC: LAB 10:24
PROVIDERS: PCP Nurse Practitioner Family; Referring Provider Nurse Practitioner Family; Visit Provider Nurse Practitioner Family
DX: Z12.5 Encounter for screening for malignant neoplasm of prostate (principal); E11.9 Type 2 diabetes mellitus without complications; I10 Essential (primary) hypertension; E78.5 Hyperlipidemia, unspecified
CPT/HCPCS: 36415; 80053; 80061; 82043; 82570; 83036; 84153; G0103

== ENCOUNTER 2025-07-01 12:20 | Day surgery (SDC) | payer MEDICARE, SELFPAY ==
--- NOTE | 2025-06-27 15:50 | PAT.ANE_ITS ---
Pre-Assessment Diagnosis/Proposed Procedure Planned Operative Procedure(s): EGD, COLONOSCOPY Anesthesia History Anesthesia History - digital communications manager: Anesthesia History - digital communications manager Hx Hospitalization No 06/27/25 13:31 Any Problems With Anesthesia No 06/27/25 13:31 Cholinesterase deficiency No 06/27/25 13:31 You/Your Family Experience No 06/27/25 13:31 fever (hyperthermia) with Relationship Recent Exposure to Contagious No 10/30/23 06:33 Disease Does patient have nerve No 06/27/25 13:31 stimulator Patient instructed to have device shut off --Does patient have Pacemaker or ICD? When Was Last Pacemaker Check QUESTION #4 FULL TEXT: You/Your Family Experience fever (hyperthermia) with Anesthesia Last Oral Intake Last Oral intake: Last Oral Intake NPO since Meds taken in AM with sips of water? Meds patient instructed to take am of surgery PONV PONV - digital communications manager: PONV - digital communications manager Female No 06/27/25 13:31 HX of Motion Sickness No 06/27/25 13:31 HX of N/V After Surgery No 06/27/25 13:31 Non-Smoker Yes 06/27/25 13:31 Duration of Surgery greater No 06/27/25 13:31 than 60 minutes Number of Risk Factors 1 06/27/25 13:31 PONV Score Low Risk 06/27/25 13:31 Height & Weight Height & Weight: Anesthesia: Height & Weight Height 5 ft 10 in 10/30/23 06:33 Respiratory Assessment Respiratory Assessment - digital communications manager: Respiratory Tract Infection Hx - digital communications manager Hx Respiratory Tract Infection No 06/27/25 13:31 STOP Sleep Apnea STOP Sleep Apnea - digital communications manager: STOP Sleep Apnea - digital communications manager Hx Hypertension Yes: PER PT, CONTROLLED ON 06/27/25 13:31 MEDS Hx Sleep Apnea No 06/27/25 13:31 CPAP BIPAP Do you snore loudly (louder Yes 06/27/25 13:31 than talking or can be heard Do you often feel tired/ No 06/27/25 13:31 fatigued/ sleepy during daytime? Has anyone observed you stop No 06/27/25 13:31 breathing during sleep? STOP Results Positive 06/27/25 13:31 QUESTION #5 FULL TEXT : Do you snore loudly (louder than talking or can be heard through closed doors)? Tobacco Use History Tobacco Use History - digital communications manager: Tobacco Use History - digital communications manager Tobacco Use Smoking Status Former smoker 06/27/25 13:31 Hx Tobacco Use No 06/27/25 13:31 Years Smoking Packs Smoked per Day Smoking Cessation Date was No - quit smoking greater 06/27/25 13:31 within the last 15 years than 15 years ago Hx Smoking Cessation Date 07/24/99 06/27/25 13:31 Hx Smoking Cessation Counseling Hematologic Medial History Hematologic Hx - digital communications manager: Hematologic Medical Hx - zinc skimmer Hx of Blood Transfusion No 06/27/25 13:31 Hx of Transfusion in last 3 No 06/27/25 13:31 Months Date of Last Transfusion (if within last 3 months) Ever experience any problems No 06/27/25 13:31 with transfusion(s)? Specify any problems Hx of Preganancy in last 3 N/A 06/27/25 13:31 Months Nurse Filling Out Transfusion [facility] 06/27/25 13:31 & Questions: Date: 06/27/25 06/27/25 13:31 Time: 13:34 06/27/25 13:31 Patient unable to answer at this time (ie. confused, unrespo /Reproduction History /Reproductive History - digital communications manager: /Reproductive Hx- digital communications manager Hx Now Gestational Age (in weeks): EDC: Hx Hx Para Hx Section SAB No 06/27/25 13:31 Does the father of the baby or his family experience fever w Father of the baby Malignant Hypertension history comment [facility] Medical History (Updated 06/27/25 @ 14:01 by Amanda Moeller) Wears glasses Difficulty swallowing Heartburn Shortness of breath on exertion Former smoker Murmur Carpal tunnel syndrome Generalized anxiety disorder Erectile dysfunction Hypersomnia Depression Alcohol use History of steroid therapy Insulin dependent diabetes mellitus Diabetes Arthritis High cholesterol Back pain Dietary restriction Smoker Asthma Leg cramps History of pain when walking History of edema History of echocardiogram History of stress test Hypertension Cardiology follow-up encounter History of irregular heartbeat Diabetic acetonemia Home Medications ?Medication ?Instructions ?Recorded ?Last Taken ?Type insulin lispro 100 unit/mL 10 unit subcut BID 04/28/23 Unknown History subcutaneous pen (Humalog KwikPen (U-100) Insulin) aspirin 325 mg tablet 325 mg PO BID 06/06/25 Unkno wn History atorvastatin 20 mg tablet (Lipitor) 20 mg PO QDAY 05/24 11/15 Unknown History dapagliflozin propanediol 5 mg 5 mg PO QDAY 06/06/25 1 08/27/24 History tablet (Farxiga) gabapentin 400 mg capsule 400 mg PO BID 06/06/25 Unkno wn History insulin degludec 100 unit/mL 40 unit subcut QHS Unknown History subcutaneous solution (Tresiba U-100 Insulin) lisinopril 20 mg tablet 20 mg PO QDAY 06/06/25 Unkno wn History omega 1-gvz-udt-fish oil 1,200 mg 1 cap PO BID 5 Unknown History (144 mg-216 mg) capsule (Fish Oil) venlafaxine 75 mg tablet 75 mg PO QDAY 06/06/25 Unkno wn History Allergy/AdvReac Type Severity Reaction Status Date / Time celecoxib (From Celebrex) AdvReac Intermediate rapid pulse Verified 06/27/25 13:23 Family History (Updated 06/06/25 @ 08:05 by Nuris Hurd) Sister Cancer Mother Diabetes Father Alcoholism Grandmother Diabetes Surgical History (Updated 06/27/25 @ 13:31 by Amanda Moeller) History of total right knee replacement (TKR) History of tonsillectomy Hx of surgical procedure History of total left knee replacement Hx of nasal septoplasty Hx of arthroscopy of right knee Hx of arthroscopy of left knee Social History (Updated 06/06/25 @ 08:03 by Nuris Hurd) Smoking Status: Former smoker alcohol intake: current alcohol intake frequency: a few times a week Alcohol type: hard liquor substance use type: does not use caffeine: Yes what type of physical activity do you participate in: walking Audit: Pertinent Findings Pertinent Findings EKG Perinent findings: 08/19/2021. Sinus rhythm with first-degree AV block. Otherwise normal EKG. Echo (EF%) pertinent findings: Moderate aortic stenosis. EF 60 to 65%. 09/08/2023. Recommendation Anesthesia Recommendation Anesthesia recommendation: OPTIMIZED for anesthesia
[2025-07-01] VITALS (8 sets, daily range): BP systolic 87–135; BP diastolic 59–79; PULSE 55–69; RESP 14–16; TEMP 36.1–36.4; O2SAT 95–100; BMI 41.3
--- NOTE | 2025-07-01 12:34 | PCM.HP.STD ---
HPI - General General Date of Admission: 07/01/25 Date of Service: 07/01/25 Chief Complaint: Blood in the stool HPI Narrative SIMON ESTEBAN, is a 65 M who presents [ Chief Complaint: Blood in stool Referred from primary care provider due to positive fecal occult test OV 06/06/25 -stool is different colors recently, can be green or black -He denies seeing blood in his stools -sometimes constipated but typically has a bowel movement 2-3 times per day, no loose stools -epigastric pain when swallowing,lasts a couple minutes burning, can be triggered by water, no heartburn, no n/v -PMHx of diabetes, recent A1c 7, high blood pressure on lisinopril -no family hx of colon cancer -no hx of colonoscopy - quit smoking in , drinks 3x per week since being retired [facility] Medical History Wears glasses Difficulty swallowing Heartburn Shortness of breath on exertion Former smoker Murmur Carpal tunnel syndrome Generalized anxiety disorder Erectile dysfunction Hypersomnia Depression Alcohol use History of steroid therapy Insulin dependent diabetes mellitus Diabetes Arthritis High cholesterol Back pain Dietary restriction Smoker Asthma Leg cramps History of pain when walking History of edema History of echocardiogram History of stress test Hypertension Cardiology follow-up encounter History of irregular heartbeat Diabetic acetonemia Home Medications ?Medication ?Instructions ?Recorded ?Last Taken ?Type insulin lispro 100 unit/mL 10 unit subcut BID 04/28/23 Unknown History subcutaneous pen (Humalog KwikPen (U-100) Insulin) aspirin 325 mg tablet 325 mg PO BID 06/06/25 Unknown History atorvastatin 20 mg tablet (Lipitor) 20 mg PO QDAY 06/06/25 Unknown History dapagliflozin propanediol 5 mg 5 mg PO QDAY 06/06/25 06/26/25 History tablet (Farxiga) gabapentin 400 mg capsule 400 mg PO BID 06/06/25 Unknown History insulin degludec 100 unit/mL 40 unit subcut QHS 06/06/25 Unknown History subcutaneous solution (Tresiba U-100 Insulin) lisinopril 20 mg tablet 20 mg PO QDAY 06/06/25 Unknown History omega 5-qya-ebb-fish oil 1,200 mg 1 cap PO BID 06/06/25 Unknown History (144 mg-216 mg) capsule (Fish Oil) venlafaxine 75 mg tablet 75 mg PO QDAY 06/06/25 Unknown History Allergy/AdvReac Type Severity Reaction Status Date / Time celecoxib (From Celebrex) AdvReac Intermediate rapid pulse Verified 06/27/25 13:23 Family History Sister Cancer Mother Diabetes Father Alcoholism Grandmother Diabetes Surgical History History of total right knee replacement (TKR) History of tonsillectomy Hx of surgical procedure History of total left knee replacement Hx of nasal septoplasty Hx of arthroscopy of right knee Hx of arthroscopy of left knee Social History Smoking Status: Former smoker alcohol intake: current alcohol intake frequency: a few times a week Alcohol type: hard liquor substance use type: does not use caffeine: Yes what type of physical activity do you participate in: walking ROS Constitutional Constitutional: Denies fatigue, fever(s), poor appetite, weight gain or weight loss Gastrointestinal Gastrointestinal: Denies belching, bloating, change in bowel habits, change in stool character, chewing difficulty, coffee ground emesis, constipation, cramping, diarrhea, dyspepsia, dysphagia, early satiety, excessive flatus, fecal incontinence, heartburn, hematemesis, hematochezia, hemorrhoids, loose stools, melena, nausea, odynophagia, rectal bleeding, tenesmus, vomiting or weight changes Physical Exam Const alert, oriented x3, no apparent distress and healthy appearing General Appearance: cooperative GI normal to inspection, nondistended, normoactive bowel sounds, soft to palpation, non-tender and non-distended Percussion: normal to percussion Rectal Exam: deferred Assessment & Plan Assessment/Plan (1) Epigastric pain: (2) Positive occult stool blood test: PLAN: Assessment and Plan Assessment and Plan (1) Positive occult stool blood test: Status: Acute Plan: Simon is a 65-year-old male patient with past medical history of diabetes, high blood pressure, hyperlipidemia, arthritis and heart murmur here today for evaluation. Patient recently noticing changes in his stool color and primary care provider ordered stool testing which was positive for blood. Patient denies seeing gross blood in his stool. He denies any other changes in his bowel habits. Patient has never had a colonoscopy. He denies family history of colon cancer. Patient was scheduled for colonoscopy today. Patient also having epigastric pain intermittently. Pain is typically after eating or even drinking water. It is burning and will last a few minutes. He denies associated symptoms of heartburn or nausea and vomiting. He will undergo EGD in conjunction with his colonoscopy. - Colonoscopy - EGD - Follow-up Note: Portions of this note may have been selectively carried forward from previous documentation to ensure continuity and accuracy of the clinical record. All imported information has been reviewed and updated as necessary to reflect the current patient status, findings, and clinical decision-making for this encounter. [employer] speech recognition certified art therapist software was used to create portions of this document. Sound alike and misspelled words, as well as other certified art therapist errors may be contained in the documentation. (2) Epigastric pain: Status: Acute]
[2025-07-01] MEDS: Lactated Ringers 1,000 ML 15 ML IV (12:49)
--- NOTE | 2025-07-01 13:01 | PCM.PRE.AN2 ---
ASA Classification* ASA Classification ASA Classification: 2 Assessment & Plan Anesthesia* Anesthesia Assessment Anesthesia Assessment: Discussed sedation and/or anesthesia options, risks, benefits, and alternatives with patient/parents/legal guardian/POA. Questions invited. The patient/parents/legal guardian/POA seems to understand and agrees to proceed with anesthesia plan. Reviewed the physical assessment, medical history, allergy history and patient home medications list prior to surgery/procedure/anesthetic and documented any changes. Performed airway and anesthesia risk assessments. Anesthesia Type Anesthesia Type: MAC History Source History Obtained from:: Patient and Chart Anesthesia Focused Assessment* Temperature: 97 F Pulse Rate: 69 Blood Pressure: 135/79 Respiratory Rate: 16 Pulse Ox: 97 Oxygen Delivery Method: Room Air Airway Assessment Mouth opens: >3 cm Mallampati Score: II Teeth Condition: Missing Neck Range of motion (ROM): Full ROM Labs Anesthesia Preop lab: CBC WBC, (4.4-11.0) 6.4 K/mm3 09/30/24, 10:47 RBC, (4.6-6.2) 4.89 M/mm3 09/30/24, 10:47 Hgb, (13.0-16.5) 14.8 g/dL 09/30/24, 10:47 Hct, (40-54) 45.2 % 09/30/24, 10:47 Plt Count, (150-450) 231 K/mm3 09/30/24, 10:47 CHEMISTRY Potassium, (3.3-5.1) 5.3 mmol/L H 04/02/25, 10:35 Sodium, (133-145) 139 mmol/L 04/02/25, 10:35 Magnesium, (1.6-2.6) 2.4 mg/dL 10/09/23, 07:03 BUN, (4-19) 21 mg/dL H 04/02/25, 10:35 Creatinine, (0.70-1.20) 1.02 mg/dL 04/02/25, 10:35 Glucose, (70-99) 144 mg/dL H 04/02/25, 10:35 POC Glucose, (74-106) 201 mg/dL H 10/30/23, 10:55 COAG PT, (11.7-14.9) 13.4 SECONDS 10/09/23, 07:03 Pre-Assessment Diagnosis/Proposed Procedure Planned Operative Procedure(s): EGD, COLONOSCOPY Anesthesia History 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 When Was Last Pacemaker Check QUESTION #4 FULL TEXT: You/Your Family Experience fever (hyperthermia) with Anesthesia Last Oral Intake Last Oral intake: Last Oral Intake NPO since 09:30 07/01/25 12:46 Meds taken in AM with sips of water? Meds patient instructed to take am of surgery PONV PONV - line installer repairer: PONV - line installer repairer Female No 06/27/25 13:31 HX of Motion Sickness No 06/27/25 13:31 HX of N/V After Surgery No 06/27/25 13:31 Non-Smoker Yes 06/27/25 13:31 Duration of Surgery greater No 06/27/25 13:31 than 60 minutes Number of Risk Factors 1 06/27/25 13:31 PONV Score Low Risk 06/27/25 13:31 Height & Weight Height & Weight: Anesthesia: Height & Weight Height 5 ft 10 in 07/01/25 12:46 Weight: 130.635 kg 07/01/25 12:46 Body Mass Index (BMI) 41.3 07/01/25 12:46 Respiratory Assessment Respiratory Assessment - line installer repairer: Respiratory Tract Infection Hx - line installer repairer Hx Respiratory Tract Infection No 06/27/25 13:31 STOP Sleep Apnea STOP Sleep Apnea - line installer repairer: STOP Sleep Apnea - line installer repairer Hx Hypertension Yes: PER PT, CONTROLLED ON 06/27/25 13:31 MEDS Hx Sleep Apnea No 06/27/25 13:31 CPAP BIPAP Do you snore loudly (louder Yes 06/27/25 13:31 than talking or can be heard Do you often feel tired/ No 06/27/25 13:31 fatigued/ sleepy during daytime? Has anyone observed you stop No 06/27/25 13:31 breathing during sleep? STOP Results Positive 06/27/25 13:31 QUESTION #5 FULL TEXT : Do you snore loudly (louder than talking or can be heard through closed doors)? Tobacco Use History Tobacco Use History - line installer repairer: Tobacco Use History - line installer repairer Tobacco Use Smoking Status Former smoker 06/27/25 13:31 Hx Tobacco Use No 06/27/25 13:31 Years Smoking Packs Smoked per Day Smoking Cessation Date was No - quit smoking greater 06/27/25 13:31 within the last 15 years than 15 years ago Hx Smoking Cessation Date 07/24/99 06/27/25 13:31 Hx Smoking Cessation Counseling Hematologic Medial History Hematologic Hx - line installer repairer: Hematologic Medical Hx - meringuer Hx of Blood Transfusion No 06/27/25 13:31 Hx of Transfusion in last 3 No 06/27/25 13:31 Months Date of Last Transfusion (if within last 3 months) Ever experience any problems No 06/27/25 13:31 with transfusion(s)? Specify any problems Hx of Preganancy in last 3 N/A 06/27/25 13:31 Months Nurse Filling Out Transfusion MGRIFFITH 06/27/25 13:31 & Questions: Date: 06/27/25 06/27/25 13:31 Time: 13:34 06/27/25 13:31 Patient unable to answer at this time (ie. confused, unrespo /Reproduction History /Reproductive History - line installer repairer: /Reproductive Hx- line installer repairer Hx Now Gestational Age (in weeks): EDC: Hx Hx Para Hx Section SAB No 06/27/25 13:31 Does the father of the baby or his family experience fever w Father of the baby Malignant Hypertension history comment Active Medications Active Medications: Current Medications Generic Name Dose Route Start Last Admin Trade Name Freq PRN Reason Stop Dose Admin Lactated Ringer's 1,000 mls @ 15 mls/hr 07/01/25 12:30 07/01/25 12:49 IV 15 mls/hr .Q48H TIGRE Administration PFSH Medical History Wears glasses Difficulty swallowing Heartburn Shortness of breath on exertion Former smoker Murmur Carpal tunnel syndrome Generalized anxiety disorder Erectile dysfunction Hypersomnia Depression Alcohol use History of steroid therapy Insulin dependent diabetes mellitus Diabetes Arthritis High cholesterol Back pain Dietary restriction Smoker Asthma Leg cramps History of pain when walking History of edema History of echocardiogram History of stress test Hypertension Cardiology follow-up encounter History of irregular heartbeat Diabetic acetonemia Home Medications ?Medication ?Instructions ?Recorded ?Last Taken ?Type insulin lispro 100 unit/mL 10 unit subcut BID 04/28/23 06/30/25 History subcutaneous pen (Humalog KwikPen (U-100) Insulin) aspirin 325 mg tablet 325 mg PO BID 06/06/25 06/26/25 History atorvastatin 20 mg tablet (Lipitor) 20 mg PO QDAY 06/06/25 Unknown History dapagliflozin propanediol 5 mg 5 mg PO QDAY 06/06/25 06/26/25 History tablet (Farxiga) gabapentin 400 mg capsule 400 mg PO BID 06/06/25 Unknown History insulin degludec 100 unit/mL 40 unit subcut QHS 06/06/25 Unknown History subcutaneous solution (Tresiba U-100 Insulin) lisinopril 20 mg tablet 20 mg PO QDAY 06/06/25 06/30/25 History omega 5-lub-dmi-fish oil 1,200 mg 1 cap PO BID 06/06/25 06/26/25 History (144 mg-216 mg) capsule (Fish Oil) venlafaxine 75 mg tablet 75 mg PO QDAY 06/06/25 Unknown History Allergy/AdvReac Type Severity Reaction Status Date / Time celecoxib (From Celebrex) AdvReac Intermediate rapid pulse Verified 07/01/25 12:44 Family History Sister Cancer Mother Diabetes Father Alcoholism Grandmother Diabetes Surgical History History of total right knee replacement (TKR) History of tonsillectomy Hx of surgical procedure History of total left knee replacement Hx of nasal septoplasty Hx of arthroscopy of right knee Hx of arthroscopy of left knee Social History Smoking Status: Former smoker alcohol intake: current alcohol intake frequency: a few times a week Alcohol type: hard liquor substance use type: does not use caffeine: Yes what type of physical activity do you participate in: walking Review of Systems (Anesthesia) ROS Narrative System reviewed and no additional complaints, except as documented.
--- NOTE | 2025-07-01 13:30 | COLBX_PTH ---
PATIENT: SIMON ESTEBAN LOC: [facility] U#:[id number] AGE/SX: 65/M ROOM: RE07/01/[address]: Dr. Shane Butler DO : 1960 BED: DIS: 07/01/2025 SPEC #: [id number] RECD: 07/01/25 18:01 STATUS: MONE SHAHID #: [id number] JACQUI: 07/01/25 13:[address]: Shane Butler DEPT: SURGICAL PATHOLOGY RECD BY: Steve Medina ENTERED: 07/02/25 10:22 SP TYPE: COLON BX OTHR DR: Andry Almaguer, ADULT SERVICES LIBRARIAN-C Tissues: A - Duodenum, NOS B - Gastric mucous membrane C - Esophagus, NOS D - COLON BIOPSY E - Sigmoid colon biopsy F - Rectum, NOS Procedures: Surgery Specimen Level IV HEADER OPERATION: Colonoscopy, biopsy, polypectomy, clip, EGD with biopsy PRE-OP DIAGNOSIS: Epigastric pain, positive occult stool blood test TISSUE SUBMITTED: A- Duodenum biopsy, B- Gastric body biopsy, C- Distal esophagus biopsy, D- Hepatic flexure polyp, E- Sigmoid polyp, F- Rectal polyp biopsy MICROSCOPIC DIAGNOSIS A. Small intestine, duodenum, biopsy: - Normal villous architecture with no specific pathologic change. - Negative for increased intraepithelial lymphocytes. B. Stomach, body, biopsy: - Oxyntic mucosa with features of reactive gastropathy. - Negative for Helicobacter-like organisms (H&E). C. Esophagus, distal, biopsy: - Squamous mucosa with mild reactive changes. - Columnar mucosa negative for goblet cell metaplasia. D. Colon, hepatic flexure, polyp, biopsy: - Sessile serrated lesion. E. Colon, sigmoid, polyp, polypectomy: - Tubulovillous adenoma. - No stalk involvement is observed in these sections. F. Rectum, polyp, biopsy: - Hyperplastic polyp. MICROSCOPIC DESCRIPTION Slides are reviewed. GROSS DESCRIPTION A. Received in fixative is one container labeled with the patient's name and designated Duodenum biopsy. The specimen consists of two irregular fragments of sheriff tissue, each measuring 0.4 cm. The specimen is totally submitted in one cassette. B. Received in fixative is one container labeled with the patient's name and designated Gastric body biopsy. The specimen consists of two irregular fragments of sheriff tissue that measure 0.4 and 0.6 cm. The specimen is totally submitted in one cassette. C. Received in fixative is one container labeled with the patient's name and designated Distal esophagus biopsy. The specimen consists of one irregular fragment of sheriff tissue that measures 0.3 cm. The specimen is totally submitted in one cassette. D. Received in fixative is one container labeled with the patient's name and designated Hepatic flexure polyp. The specimen consists of three irregular fragments of sheriff tissue that measure 0.2 to 0.4cm. The specimen is totally submitted in one cassette. E. Received in fixative is one container labeled with the patient's name and designated Sigmoid polyp. The specimen consists of a 1.4 x 1.0 x 0.7 cm dark red granular lobulated polyp with an attached, apparent stalk, 0.3 cm in length by 0.4 cm in diameter. The resection margin is inked green and the polyp is trisected on the long axis. Entirely submitted in 1 cassette.F. Received in fixative is one container labeled with the patient's name and designated Rectal polyp biopsy. The specimen consists of one irregular fragment of sheriff tissue that measures 0.4 cm. The specimen is totally submitted in one cassette. CHARLEY 07/02/2025 CPT:07491v8
--- NOTE | 2025-07-01 15:06 | OP.EGD_ITS ---
Patient Name: Jerrod Gross Procedure Date: 07/01/2025 2:21 PM Date of : 1960 Age: 65 Procedure: Upper GI endoscopy Indications: Iron deficiency anemia Providers: Shane Butler DO Referring MD: Andry Almaguer Medicines: Monitored Anesthesia Care Patient Profile: This is a 65 year old male. Refer to note in patient chart for documentation of history and physical. Patient has symptoms. Complications: No immediate complications. Procedure: Pre-Anesthesia Assessment: - Prior to the procedure, a History and Physical was performed, and patient medications and allergies were reviewed. The patient is competent. The risks and benefits of the procedure and the sedation options and risks were discussed with the patient. All questions were answered and informed consent was obtained. Patient identification and proposed procedure were verified by the physician in the pre-procedure area. Mental Status Examination: alert and oriented. Airway Examination: normal oropharyngeal airway and neck mobility. Respiratory Examination: clear to auscultation. Prophylactic Antibiotics: The patient does not require prophylactic antibiotics. Prior Anticoagulants: The patient has taken no anticoagulant or antiplatelet agents. ASA Grade Assessment: II - A patient with mild systemic disease. After reviewing the risks and benefits, the patient was deemed in satisfactory condition to undergo the procedure. The anesthesia plan was to use monitored anesthesia care (MAC). Immediately prior to administration of medications, the patient was re-assessed for adequacy to receive sedatives. The heart rate, respiratory rate, oxygen saturations, blood pressure, adequacy of pulmonary ventilation, and response to care were monitored throughout the procedure. The physical status of the patient was re-assessed after the procedure. After obtaining informed consent, the endoscope was passed under direct vision. Throughout the procedure, the patient's blood pressure, pulse, and oxygen saturations were monitored continuously. The pediatric colonoscope was introduced through the mouth, and advanced to the fourth part of the duodenum. Small bowel enteroscopy was deemed necessary. The upper GI endoscopy was accomplished without difficulty. The patient tolerated the procedure well. Scope In: 2:35:54 PM Scope Out: 2:40:13 PM Total Procedure Duration Time 0 hours 4 minutes 19 seconds Findings: LA Grade A (one or more mucosal breaks less than 5 mm, not extending between tops of 2 mucosal folds) esophagitis with no bleeding was found 38 to 40 cm from the incisors. Biopsies were taken with a cold forceps for histology. Verification of patient identification for the specimen was done. Estimated blood loss was minimal. Patchy mild inflammation characterized by erosions was found in the gastric body. Biopsies were taken with a cold forceps for histology. Biopsies were taken with a cold forceps for Helicobacter pylori testing. Verification of patient identification for the specimen was done. Estimated blood loss was minimal. No gross lesions were noted in the entire examined duodenum. Biopsies were taken with a cold forceps for histology. Verification of patient identification for the specimen was done. Estimated blood loss was minimal. Impression: - LA Grade A reflux esophagitis with no bleeding. Biopsied. - Chronic gastritis. Biopsied. - No gross lesions in the entire examined duodenum. Biopsied. Recommendation: - Discharge patient to home. - Resume previous diet. - Continue present medications. - Await pathology results. Procedure Code(s): --- Professional --- 37075, Small intestinal endoscopy, enteroscopy beyond second portion of duodenum, not including ileum; with biopsy, single or multiple CPT copyright 2021 [employer]. All rights reserved. The codes documented in this report are preliminary and upon foreign collection clerk review may be revised to meet current compliance requirements. Shane Butler DO 07/01/2025 3:06:28 PM This report has been signed electronically. Number of Addenda: 0 Note Initiated On: 07/01/2025 2:21 PM
--- NOTE | 2025-07-01 15:07 | OP.PROVAT_ITS ---
07/01/2025 Andry Almaguer Re : Upper GI endoscopy procedure for Jerrod Hand Tripp This procedure was performed on Tuesday, July 01, 2025. My impressions and recommendations are as follows: Impressions : - LA Grade A reflux esophagitis with no bleeding. Biopsied. - Chronic gastritis. Biopsied. - No gross lesions in the entire examined duodenum. Biopsied. Recommendations : - Discharge patient to home. - Resume previous diet. - Continue present medications. - Await pathology results. My findings are described in the full procedure note, which is enclosed. If I can be of further assistance, please feel free to contact me at . Sincerely, Shane Butler, 07/01/2025 3:06:28 PM This report has been signed electronically.
--- NOTE | 2025-07-01 15:11 | OP.COLON_ITS ---
Patient Name: Jerrod Gross Procedure Date: 07/01/2025 2:40 PM Date of : 1960 Age: 65 Procedure: Colonoscopy Indications: Screening for colorectal malignant neoplasm Providers: Shane Butler DO Referring MD: Andry Almaguer Medicines: Monitored Anesthesia Care Patient Profile: This is a 65 year old male. Refer to note in patient chart for documentation of history and physical. Patient has symptoms. Last Colonoscopy: none. The patient's first colonoscopy is today. Complications: No immediate complications. Procedure: Pre-Anesthesia Assessment: - Prior to the procedure, a History and Physical was performed, and patient medications and allergies were reviewed. The patient is competent. The risks and benefits of the procedure and the sedation options and risks were discussed with the patient. All questions were answered and informed consent was obtained. Patient identification and proposed procedure were verified by the physician in the pre-procedure area. Mental Status Examination: alert and oriented. Airway Examination: normal oropharyngeal airway and neck mobility. Respiratory Examination: clear to auscultation. Prophylactic Antibiotics: The patient does not require prophylactic antibiotics. Prior Anticoagulants: The patient has taken no anticoagulant or antiplatelet agents. ASA Grade Assessment: II - A patient with mild systemic disease. After reviewing the risks and benefits, the patient was deemed in satisfactory condition to undergo the procedure. The anesthesia plan was to use monitored anesthesia care (MAC). Immediately prior to administration of medications, the patient was re-assessed for adequacy to receive sedatives. The heart rate, respiratory rate, oxygen saturations, blood pressure, adequacy of pulmonary ventilation, and response to care were monitored throughout the procedure. The physical status of the patient was re-assessed after the procedure. After I obtained informed consent, the scope was passed under direct vision. Throughout the procedure, the patient's blood pressure, pulse, and oxygen saturations were monitored continuously. The pediatric colonoscope was introduced through the anus and advanced to the cecum, identified by appendiceal orifice and ileocecal valve. The colonoscopy was performed without difficulty. The patient tolerated the procedure well. The quality of the bowel preparation was adequate. The ileocecal valve, appendiceal orifice, and rectum were photographed. Scope In: 2:42:05 PM Scope Withdrawal Time 0 hours 15 minutes 50 seconds Scope Out: 2:59:36 PM Total Procedure Duration Time 0 hours 17 minutes 31 seconds Findings: The perianal and digital rectal examinations were normal. Two sessile polyps were found in the sigmoid colon and hepatic flexure. The polyps were 10 mm in size. These polyps were removed with a hot snare. Resection and retrieval were complete. Verification of patient identification for the specimen was done. Estimated blood loss was minimal. To close a defect after polypectomy, two hemostatic clips were successfully placed. 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 There was no bleeding at the end of the procedure. A 5 mm polyp was found in the rectum. The polyp was sessile. The polyp was removed with a jumbo cold forceps. Resection and retrieval were complete. Verification of patient identification for the specimen was done. Estimated blood loss was minimal. Multiple small and large-mouthed diverticula were found in the recto-sigmoid colon and sigmoid colon. Impression: - Two 10 mm polyps in the sigmoid colon and at the hepatic flexure, removed with a hot snare. Resected and retrieved. - One 5 mm polyp in the rectum, removed with a jumbo cold forceps. Resected and retrieved. - Diverticulosis in the recto-sigmoid colon and in the sigmoid colon. Recommendation: - Discharge patient to home. - Resume previous diet. - Continue present medications. - Repeat colonoscopy in 3 years for surveillance. Procedure Code(s): --- Professional --- 73961, Colonoscopy, flexible; with removal of tumor(s), polyp(s), or other lesion(s) by snare technique 87526, 59, Colonoscopy, flexible; with biopsy, single or multiple CPT copyright 2021 [employer]. All rights reserved. The codes documented in this report are preliminary and upon business unit manager review may be revised to meet current compliance requirements. Shane Butler DO 07/01/2025 3:11:32 PM This report has been signed electronically. Number of Addenda: 0 Note Initiated On: 07/01/2025 2:40 PM
--- NOTE | 2025-07-01 15:11 | PCM.POST.ANE ---
Anesthesia: Postop Eval I Current Vital Signs Temperature: 97 F Pulse Rate: 57 Blood Pressure: 87/67 Respiratory Rate: 16 Pulse Ox: 96 Oxygen Delivery Method: Room Air Assessment Airway patent: Yes Spontaneous unlabored respirations: Yes Mental status: Awake and Calm nausea: No Vomiting: No Anesthesia Complication: No Fluid Hydration Crystalloid volume administer (ml): 800 Total IV fluid infused: 800 Progress Note Anesthesia document: Postop Eval 1 completed: Yes
--- NOTE | 2025-07-01 15:12 | OP.PROVAT_ITS ---
07/01/2025 Andry Almaguer Re : Colonoscopy procedure for Jerrod Hand Tripp This procedure was performed on Tuesday, July 01, 2025. My impressions and recommendations are as follows: Impressions : - Two 10 mm polyps in the sigmoid colon and at the hepatic flexure, removed with a hot snare. Resected and retrieved. - One 5 mm polyp in the rectum, removed with a jumbo cold forceps. Resected and retrieved. - Diverticulosis in the recto-sigmoid colon and in the sigmoid colon. Recommendations : - Discharge patient to home. - Resume previous diet. - Continue present medications. - Repeat colonoscopy in 3 years for surveillance. My findings are described in the full procedure note, which is enclosed. If I can be of further assistance, please feel free to contact me at . Sincerely, Shane Butler, 07/01/2025 3:11:32 PM This report has been signed electronically.
--- NOTE | 2025-07-01 15:30 | PCM.POSTANE2 ---
Anesthesia Postop Eval I Sum Postop Eval Completion status Anesthesia document: Postop Eval 1 completed: Yes Anesthesia Postop Eval I Summary Anesthesia Postop Eval I Summary: Anesthesia Postop Eval I: Assessment Summary Airway patent Yes 07/01/25 15:12 [email or web address] Spontaneous unlabored Yes 07/01/25 15:12 [email or web address] respirations Mental status Awake,Calm 07/01/25 15:12 [email or web address] nausea No 07/01/25 15:12 [email or web address] Vomiting No 07/01/25 15:12 [email or web address] Anesthesia Postop Eval I: Fluid Summary Crystalloid volume administer 800 07/01/25 15:12 [email or web address] (ml) Colloids volume administered ( ml) Blood Product volume administered (ml) Total IV fluid infused 800 07/01/25 15:12 [email or web address] Anesthesia Postop Eval I: Summary Notes Anesthesia Complication No 07/01/25 15:12 [email or web address] Anesthesia Complication Comment: Post-operative progress note Anesthesia: Postop Eval II Evaluation Mental status: Awake and Calm Pain Level: 1 nausea: No Vomiting: No Complications Anesthesia Complication: No
== END 2025-07-01 15:34 | disposition home or self-care (01) ==
LOC: EN 12:20 → AC 12:22
PROVIDERS: PCP Nurse Practitioner Family; Referring Provider Nurse Practitioner Family; Visit Provider Internal Medicine Gastroenterology
PROC: 0DJD8ZZ Inspection of Lower Intestinal Tract, Via Natural or Artificial Opening Endoscopic (ICD-10-PCS; CPT 45378; principal; 2025-07-01 13:25)
DX: D12.5 Benign neoplasm of sigmoid colon (principal); E11.9 Type 2 diabetes mellitus without complications; Z79.4 Long term (current) use of insulin; D50.9 Iron deficiency anemia, unspecified; K29.50 Unspecified chronic gastritis without bleeding; Z79.82 Long term (current) use of aspirin; K57.30 Diverticulosis of large intestine without perforation or abscess without bleeding; K21.00 Gastro-esophageal reflux disease with esophagitis, without bleeding; I10 Essential (primary) hypertension; E78.00 Pure hypercholesterolemia, unspecified; Z87.891 Personal history of nicotine dependence; J45.909 Unspecified asthma, uncomplicated; Z79.899 Other long term (current) drug therapy; D12.3 Benign neoplasm of transverse colon; K62.1 Rectal polyp
CPT/HCPCS: 45385; 45380; 44361; 82962; 88305; J2405